=== PATIENT | male | born 1950 | race Caucasian/White ===

== ENCOUNTER → 2019-04-16 | Outpatient (CLI) | payer MEDICARE, MEDICAID | END | disposition home or self-care (01) | LOC: MSC 10:00 | PROVIDERS: ATTEND Anesthesiology | DX: M51.36 Other intervertebral disc degeneration, lumbar region (principal); M51.26 Other intervertebral disc displacement, lumbar region; M47.27 Other spondylosis with radiculopathy, lumbosacral region; M40.299 Other kyphosis, site unspecified; M79.604 Pain in right leg; M79.605 Pain in left leg; Z98.61 Coronary angioplasty status; Z98.62 Peripheral vascular angioplasty status; E11.9 Type 2 diabetes mellitus without complications; R03.0 Elevated blood-pressure reading, without diagnosis of hypertension; Z87.891 Personal history of nicotine dependence; F10.99 Alcohol use, unspecified with unspecified alcohol-induced disorder ==

== ENCOUNTER → 2019-05-21 | Outpatient (CLI) | payer MEDICARE, MEDICAID | END | disposition home or self-care (01) | LOC: MSC 09:55 | PROVIDERS: ATTEND Anesthesiology | DX: M51.36 Other intervertebral disc degeneration, lumbar region (principal); M51.26 Other intervertebral disc displacement, lumbar region; M47.27 Other spondylosis with radiculopathy, lumbosacral region; M40.299 Other kyphosis, site unspecified; M79.604 Pain in right leg; M79.605 Pain in left leg; E11.9 Type 2 diabetes mellitus without complications; R03.0 Elevated blood-pressure reading, without diagnosis of hypertension; Z95.5 Presence of coronary angioplasty implant and graft; Z87.891 Personal history of nicotine dependence; F10.99 Alcohol use, unspecified with unspecified alcohol-induced disorder ==

== ENCOUNTER → 2019-12-10 | Outpatient (CLI) | payer MEDICARE, MEDICAID | END | disposition home or self-care (01) | LOC: MSC 12:00 | PROVIDERS: ATTEND Anesthesiology | DX: M51.36 Other intervertebral disc degeneration, lumbar region (principal); M51.26 Other intervertebral disc displacement, lumbar region; M47.27 Other spondylosis with radiculopathy, lumbosacral region; M40.299 Other kyphosis, site unspecified; M79.669 Pain in unspecified lower leg; E11.9 Type 2 diabetes mellitus without complications; I10 Essential (primary) hypertension ==

== ENCOUNTER → 2020-01-14 | Outpatient (CLI) | payer MEDICARE, MEDICAID | END | disposition home or self-care (01) | LOC: MSC 10:20 | PROVIDERS: ATTEND Anesthesiology | DX: M47.27 Other spondylosis with radiculopathy, lumbosacral region (principal); M51.36 Other intervertebral disc degeneration, lumbar region; M51.26 Other intervertebral disc displacement, lumbar region; M40.299 Other kyphosis, site unspecified; M79.669 Pain in unspecified lower leg; E11.9 Type 2 diabetes mellitus without complications; I10 Essential (primary) hypertension; Z95.5 Presence of coronary angioplasty implant and graft ==

== ENCOUNTER 2020-04-04 08:04 | Inpatient (IN) | payer MEDICARE, OTHER ==
[~2020-04-04] VITALS: Ht 170.2 cm; Wt 109.0 kg
--- NOTE | 2020-04-04 08:04 | NUR ---
PT BIB FAMILY C/O WORSENING SOB SINCE YESTERDAY O2 SAT 97% RA. PT IS AAOX4, NOTED INCREASED RESPIRATION, V/S STABLE, KEPT RESTED AND COMFORTABLE. WILL CONTINUE TO MONITOR.
--- NOTE | 2020-04-04 08:19 | NUR ---
SEEN AND EXAMINED BY .
--- NOTE | 2020-04-04 08:25 | NUR ---
IV LINE ESTABLISHED BLOOD DRAWN AND SENT TO LAB.
[2020-04-04 08:37] LABS: BASOPHILS % (AUTO) 0.6 % (0.0-2.0); EOSINOPHILS % (AUTO) 0.3 % (0.0-6.0); HEMATOCRIT 46 % (39-51); HEMOGLOBIN 15.2 g/dL (13.5-17.5); LYMPHOCYTES # (AUTO) 0.9 /CMM (0.8-4.8); LYMPHOCYTES % (AUTO) 23.2 % (20.0-44.0); MEAN CORPUSCULAR HGB CONC 33 g/dl (31.0-36.0); MEAN CORPUSCULAR VOLUME 84 fL (80-96); MONOCYTES # (AUTO) 0.4 /CMM (0.1-1.30); NEUTROPHILS # (AUTO) 2.4 /CMM (1.8-8.9); NEUTROPHILS % (AUTO) 65.9 % (43.0-81.0); PLATELET COUNT (AUTO) 99 /CMM (150-450); RED BLOOD CELL COUNT(AUTO) 5.42 MIL/uL (4.5-6.0); WHITE BLOOD COUNT (AUTO) 3.7 K/uL (4.3-11.0)
[2020-04-04 08:53] LABS: CALCIUM, SERUM 8.3 mg/dL (8.5-10.1); CARBON DIOXIDE 26 mmol/L (21-32); CHLORIDE 104 mmol/L (98-107); GLUCOSE 143 mg/dL (74-106); POTASSIUM 3.5 mmol/L (3.5-5.1); SODIUM SERUM 139 mmol/L (136-145); UREA NITROGEN, BLOOD 15 mg/dL (7-18)
[2020-04-04 08:56] LABS: D-DIMER 0.41 mg/L(FEU (0.17-0.50)
[2020-04-04 09:01] LABS: ABG BASE EXCESS -2.8 mmol/L; ABG OXYGEN SATURATION 97.7 % (92.0-98.5); ABG PH 7.416 (7.350-7.450); ABG PO2 103.4 mmHg (75.0-100.0); AaDO2 86.2 mmHg; COHb 0.9 % (0.5-1.5); MetHb 0.5 % (0.0-1.5); O2Hb 96.3 % (94.0-97.0); SITE, ABG Right Radial; VENT MODE, BG N/C 3LPM
[2020-04-04 09:07] LABS: ALANINE AMINOTRANSFERASE 24 U/L (12-78); ALBUMIN 3.2 g/dL (3.4-5.0); ALKALINE PHOSPHATASE 30 U/L (46-116); ASPARTATE AMINOTRANSFERASE 19 U/L (15-37); B-TYPE NATRIURETIC PEPTIDE 168 PG/ML (0-125); BILIRUBIN,TOTAL 0.5 mg/dL (0.2-1.0); TOTAL PROTEIN, SERUM 6.2 g/dL (6.4-8.2)
[2020-04-04 09:49] LABS: BILIRUBIN,URINE Negative (NEGATIVE); COLOR,URINE YELLOW (YELLOW); LEUKOCYTE ESTERASE ,URINE Negative (NEGATIVE); NITRITE, URINE Negative (NEGATIVE); PH,URINE 6.5 (5.0-8.0); PROTEIN,URINE 100 mg/dl (NEGATIVE); UGLUCOSE >=1000 mg/dL (NEGATIVE); UROBILINOGEN,URINE 0.2 EU/dL (0.2)
[2020-04-04 10:11] LABS: BACTERIA,URINE None seen /HPF (None Seen); RBC,URINE 0-2 /HPF (0-2); SQUAMOUS EPITHELIAL CELL,UR Few /HPF (None Seen); WBC,URINE 0-2 /HPF (0-3)
[2020-04-04 10:18] LABS: CREATINE KINASE, TOTAL 81 U/L (39-308); FERRITIN 196 ng/mL (8-388)
[2020-04-04 10:30] LABS: C-REACTIVE PROTEIN 1.6 mg/dL (0.0-0.9)
[2020-04-04] MEDS ORDERED: SENN-175 PO (10:32)
[2020-04-04] MEDS ORDERED: ATOR20TA PO (10:32)
[2020-04-04] MEDS ORDERED: ASPI-1169 PO (10:32)
[2020-04-04] MEDS ORDERED: EMPA25TA PO (10:32)
[2020-04-04] MEDS ORDERED: ICOS1CAP PO (10:32)
[2020-04-04] MEDS ORDERED: INSU100V11 SQ (10:32)
[2020-04-04] MEDS ORDERED: SACU1TAB4 PO (10:32)
[2020-04-04] MEDS ORDERED: INSU100I35 SQ (10:32)
[2020-04-04] MEDS ORDERED: CARV25TA PO (10:32)
[2020-04-04] MEDS ORDERED: FENO145T21 PO (10:32)
[2020-04-04] MEDS ORDERED: HYDR-4076 PO (10:32)
--- NOTE | 2020-04-04 10:43 | NUR ---
CLAIM PROFESSIONAL AT BEDSIDE FOR XRAY.
[2020-04-04] MEDS ORDERED: DEXAMETHASONE 1 MG TABLET PO ONE (11:00)
[2020-04-04] MEDS ORDERED: AZITHROMYCIN 500 MG in IV D5W 250 ML IV ONE (11:00)
[2020-04-04] MEDS ORDERED: DEXAMETHASONE 1 MG TABLET ONE (11:04)
[2020-04-04] MEDS ORDERED: DEXAMETHASONE 4 MG TABLET ONE (11:04)
[2020-04-04] MEDS ORDERED: HYDROCODONE/APAP 5/325MG TABLET PO PRN (14:30)
[2020-04-04] MEDS ORDERED: ACETAMINOPHEN 325 MG TABLET PO PRN (14:30)
[2020-04-04] MEDS ORDERED: ONDANSETRON HCL/PF 4 MG/2 ML VIAL IVP PRN (14:30)
[2020-04-04] MEDS ORDERED: Z GUARD REMEDY 2 OZ OINT TP PRN (14:30)
[2020-04-04] MEDS ORDERED: ENOXAPARIN SODIUM 40 MG/0.4 ML DISP.SYRIN SQ ONE (14:30)
[2020-04-04] MEDS ORDERED: ZOLPIDEM TARTRATE 5 MG TABLET PO PRN (14:30)
--- NOTE | 2020-04-04 14:31 | NUR ---
PT IS COVID +
--- NOTE | 2020-04-04 14:32 | NUR ---
CALLED HOUSE SUP FOR TELE BED COVID +
--- NOTE | 2020-04-04 15:22 | NUR ---
TELE 207-1.
--- NOTE | 2020-04-04 15:35 | NUR ---
REPORT GIVEN TO TOLU MANCINI FOR [facility].
[2020-04-04 15:45] VITALS: BP 157/81
--- NOTE | 2020-04-04 15:45 | NUR ---
TELE/RN OPENING NOTE Received patient in [facility], transferred safely to bed in . A&O x 4, VSS, afebrile, no SOB noted. Denies any pain/discomfort at this time. Breathing even and non-labored on 2L oxygen via NC, saturating at 97%. No cardiac distress noted. On tele monitor, reading SR 88. IV access noted on R AC #18g, patent and intact, and flushing well. Sensation from all peripheral extremities intact. No skin impairments noted. Belongings listed and noted in chart. Notified AMA Reyes that patient is in room and is awaiting for orders. Per Amy, she will come visit patient. Bed locked to its lowest position, side rails x 2 up, call light in hand. Will continue with current medical management.
[2020-04-04] MEDS ORDERED: DEXTROSE 50%-WATER 50 ML DISP.SYRIN IV PRN (19:00)
--- NOTE | 2020-04-04 19:00 | NUR ---
TELE/RN CLOSING NOTE Patient resting in bed, A&O x 4. Denies any pain/discomfort throughout shift. Breathing even and non-labored on 2L oxygen via NC, no SOB noted. No cardiac distress noted. On tele monitor, reading SR 85. IV access noted on R AC #18g, remain patent and intact, and flushing well. Sensation from all peripheral extremities intact. Fall precautions maintained. Will endorse to shift commander nurse.
--- NOTE | 2020-04-04 19:39 | NUR ---
AERODYNAMIC CONSULTANT NOTES PATIENT IN BED, AWAKE, ALERT AND ORIENTED X 4. BREATHING EVEN AND UNLABORED ON 2L NC. SHOWS NO SIGNS OF ACUTE RESPIRATORY DISTRESS. NO ACUTE PAIN. TELE MONITOR SR. IV ON RAC 18, FLUSHING WELL. CLEAN DRY AND INTACT. SHOWS NO SIGNS OF INFILTRATION, NO REDNESS. SAFETY PRECAUTIONS IN PLACE. BED IN LOWEST POSITION, LOCKED, AND CALL LIGHT KEPT WITHIN REACH. WILL CONTINUE TO MONITOR.
[2020-04-04 20:00] VITALS: BP 150/70
[2020-04-04 21:01] VITALS: BP 150/70
[2020-04-04] MEDS: BLOOD SUGAR DIAGNOSTIC 1 EACH STRIP IN SCH (21:58)
[2020-04-04] MEDS: INSULIN REGULAR, HUMAN 100 UNIT/ML 3 ML VIAL SQ PRN (22:00)
[2020-04-05] VITALS: BP 125/58
[2020-04-05 04:00] VITALS: BP 158/87
[2020-04-05] MEDS: BLOOD SUGAR DIAGNOSTIC 1 EACH STRIP IN SCH ×2 (06:33→12:02)
[2020-04-05] MEDS: INSULIN REGULAR, HUMAN 100 UNIT/ML 3 ML VIAL SQ PRN ×2 (06:35→12:05)
--- NOTE | 2020-04-05 06:56 | NUR ---
ORE STORAGE DRIER NOTES PATIENT IN BED, ASLEEP, ALERT AND ORIENTED X 4. BREATHING EVEN AND UNLABORED ON 2L NC. SHOWS NO SIGNS OF ACUTE RESPIRATORY DISTRESS. NO ACUTE PAIN. TELE MONITOR SR. IV ON RAC 18, FLUSHING WELL. CLEAN DRY AND INTACT. SHOWS NO SIGNS OF INFILTRATION, NO REDNESS. ALL DUE MEDICATIONS GIVEN. ALL NEEDS ATTENDED TO. SAFETY PRECAUTIONS IN PLACE. BED IN LOWEST POSITION, LOCKED, AND CALL LIGHT KEPT WITHIN REACH. WILL ENDORSE TO ONCOMING NURSE.
--- NOTE | 2020-04-05 07:30 | NUR ---
TELE/RN OPENING NOTE Patient awake in bed, A&O x 4. Denies any pain/discomfort throughout shift. Breathing even and non-labored on 2L oxygen via NC, no SOB noted. No cardiac distress noted. On tele monitor, reading SR 76. IV access noted on R AC #18g, remain patent and intact, and flushing well. Sensation from all peripheral extremities intact. Bed locked to its lowest position, side rails x 2 up, call light in hand. Will continue with current medical management.
[2020-04-05 07:57] LABS: BASOPHILS % (AUTO) 0.5 % (0.0-2.0); HEMATOCRIT 48 % (39-51); HEMOGLOBIN 15.5 g/dL (13.5-17.5); LYMPHOCYTES # (AUTO) 0.9 /CMM (0.8-4.8); LYMPHOCYTES % (AUTO) 29.5 % (20.0-44.0); MEAN CORPUSCULAR HGB CONC 33 g/dl (31.0-36.0); MEAN CORPUSCULAR VOLUME 84 fL (80-96); MONOCYTES # (AUTO) 0.4 /CMM (0.1-1.30); MONOCYTES % (AUTO) 12.9 % (2.0-12.0); NEUTROPHILS # (AUTO) 1.7 /CMM (1.8-8.9); NEUTROPHILS % (AUTO) 57.1 % (43.0-81.0); PLATELET COUNT (AUTO) 113 /CMM (150-450); RED BLOOD CELL COUNT(AUTO) 5.63 MIL/uL (4.5-6.0); WHITE BLOOD COUNT (AUTO) 2.9 K/uL (4.3-11.0)
[2020-04-05 08:00] VITALS: BP 150/79
[2020-04-05 08:20] LABS: CALCIUM, SERUM 8.4 mg/dL (8.5-10.1); MAGNESIUM 1.9 mg/dL (1.8-2.4); POTASSIUM 3.8 mmol/L (3.5-5.1)
[2020-04-05] MEDS ORDERED: DEXAMETHASONE SOD PHOSPHATE 10 MG/ML VIAL IV SCH (11:00)
--- NOTE | 2020-04-05 11:00 | NUR ---
TELE/RN NOTE Patient appears comfortable and well, no respiratory distress noted. On room air, saturating at 98%, breathing even and non-labored.
[2020-04-05 12:00] VITALS: BP 138/69
[2020-04-05] MEDS ORDERED: DEXA4TAB PO (13:30)
--- NOTE | 2020-04-05 15:30 | NUR ---
TELE/HEALTH SERVICES MANAGER NOTE Patient picked up by son, Gasper. Patient remained stable throughout shift. No complaints of pain/discomfort noted. Breathing even and non-labored on RA, no SOB noted. No cardiac distress noted, removed tele leads off of patient skin, skin remains intact, no new skin impairments noted. IV access removed on RAC #18 with catheter intact, placed clean dry dressing and placed pressure on site with tape. Educated patient about discharge instructions and covid isolation precautions, answered all his questions to his satisfaction. Patient verbalized understanding. Patient left safely along with hospital documents and belongings.
[2020-04-05 16:50] VITALS: BP 143/78
[2020-04-05] MEDS ORDERED: ENOXAPARIN SODIUM 40 MG/0.4 ML DISP.SYRIN SQ SCH (22:00)
== END 2020-04-05 15:30 | disposition home or self-care (01) | DRG 177 ==
LOC: ER 08:06 → TELE2 15:26
PROVIDERS: ADMIT Nurse Practitioner Acute Care; ATTEND Nurse Practitioner Acute Care
DX: U07.1 COVID-19 (principal); J12.82 Pneumonia due to coronavirus disease 2019; J96.01 Acute respiratory failure with hypoxia; E11.9 Type 2 diabetes mellitus without complications; I10 Essential (primary) hypertension; I25.10 Atherosclerotic heart disease of native coronary artery without angina pectoris; Z87.891 Personal history of nicotine dependence; D69.6 Thrombocytopenia, unspecified; D72.819 Decreased white blood cell count, unspecified; Z95.5 Presence of coronary angioplasty implant and graft; I25.2 Old myocardial infarction; Z79.4 Long term (current) use of insulin
CPT/HCPCS: 36415; 36600; 71045-TC; 80048-TC; 80053-TC; 80061-TC; 81001; 82550-TC; 82728-TC; 82803-TC; 82962-TC; 83605-TC; 83615-TC; 83735-TC; 83880; 84100-TC; 84484-TC; 85025-TC; 85378-TC; 85385-TC; 85730-TC; 86140-TC; 87040-TC; 87081-TC; 87086-TC; C9803; G0378; J0456; J1100; J1815; J7060; J8540; U0003

== ENCOUNTER 2020-12-22 11:10 | Outpatient (CLI) | payer MEDICARE, OTHER ==
[~2020-12-22 11:10] MED LIST: ASPI-1169 PO; ATOR20TA PO; CARV25TA PO; DEXA4TAB PO; EMPA25TA PO; FENO145T21 PO; HYDR-4076 PO; ICOS1CAP PO; INSU100I35 SQ; INSU100V11 SQ; SACU1TAB4 PO; SENN-175 PO
== END 2020-12-22 23:59 | disposition home or self-care (01) ==
LOC: MSC 11:10
PROVIDERS: ATTEND Anesthesiology
DX: M51.26 Other intervertebral disc displacement, lumbar region (principal); M51.36 Other intervertebral disc degeneration, lumbar region; M47.27 Other spondylosis with radiculopathy, lumbosacral region; M40.299 Other kyphosis, site unspecified; M79.669 Pain in unspecified lower leg; Z98.62 Peripheral vascular angioplasty status; Z95.5 Presence of coronary angioplasty implant and graft; I10 Essential (primary) hypertension; E11.9 Type 2 diabetes mellitus without complications; Z79.4 Long term (current) use of insulin; Z72.89 Other problems related to lifestyle; Z87.891 Personal history of nicotine dependence; Z79.82 Long term (current) use of aspirin; Z79.899 Other long term (current) drug therapy

== ENCOUNTER 2021-01-07 12:07 | Outpatient (CLI) | payer MEDICARE, OTHER | END 2021-01-07 23:59 | disposition home or self-care (01) | LOC: LAB 12:07 | PROVIDERS: ATTEND Anesthesiology | DX: Z01.812 Encounter for preprocedural laboratory examination (principal); Z20.822 Contact with and (suspected) exposure to COVID-19 | CPT/HCPCS: C9803; U0003 ==

== ENCOUNTER 2021-01-14 06:55 | Day surgery (SDC) | payer MEDICARE, OTHER ==
--- NOTE | 2021-01-14 07:40 | NUR ---
RN NOTES LFA #20 INSERTED BY TOLU RDZ.
--- NOTE | 2021-01-14 07:51 | NUR ---
RN NOTES PATIENT PICKED UP FOR PROCEDURE VIA GURNEY, ACCOMPANIED BY 2 OR NURSES.
[2021-01-14] MEDS ORDERED: BUPIVACAINE 0.25% 75 MG/30 ML VIAL ONE (08:32)
--- NOTE | 2021-01-14 10:23 | NUR ---
RN NOTES PATIENT RETURNED FROM SURGERY VIA GURNEY, ACCOMPANIED BY 2 OR NURSES.
--- NOTE | 2021-01-14 10:53 | NUR ---
RN NOTES PATIENT DISCHARGED TO HOME PER DR. CHANCE'S ORDERS. RESUME HOME MEDS PER MD. DISCHARGE INSTRUCTION AND EDUCATION PROVIDED TO PATIENT. BELONGINGS ARE WITH PATIENT. NAME ARMBAND AND IV LINE REMOVED. PATIENT IS AMBULATORY AND ABLE TO AMBULATE W/ STEADY GAIT. ABLE TO DRIVE W/ PRIVATE CAR. CHARGE NURSE AND MD AWARE OF DISCHARGE.
== END 2021-01-14 16:00 | disposition home or self-care (01) ==
LOC: DS 06:55 → MED 06:57 → UNDOADMIN 06:57 → UNDODISIN 10:45 → DS 16:00
PROVIDERS: ATTEND Anesthesiology
DX: M47.26 Other spondylosis with radiculopathy, lumbar region (principal); I10 Essential (primary) hypertension; E11.9 Type 2 diabetes mellitus without complications; M54.50 Low back pain, unspecified; M51.16 Intervertebral disc disorders with radiculopathy, lumbar region; E66.3 Overweight; Z79.4 Long term (current) use of insulin; Z79.82 Long term (current) use of aspirin; Z98.890 Other specified postprocedural states; Z79.899 Other long term (current) drug therapy
CPT/HCPCS: 62323; 72020; J2704; J3490 ×2; J7030; J7120; C9803; G0378; U0003

== ENCOUNTER → 2021-02-02 | Outpatient (CLI) | payer MEDICARE, OTHER | END | disposition home or self-care (01) | LOC: MSC 09:45 | PROVIDERS: ATTEND Anesthesiology | DX: M51.36 Other intervertebral disc degeneration, lumbar region (principal); M51.26 Other intervertebral disc displacement, lumbar region; M47.27 Other spondylosis with radiculopathy, lumbosacral region; M40.299 Other kyphosis, site unspecified; M79.669 Pain in unspecified lower leg; Z83.3 Family history of diabetes mellitus; Z82.49 Family history of ischemic heart disease and other diseases of the circulatory system; Z95.820 Peripheral vascular angioplasty status with implants and grafts; Z87.891 Personal history of nicotine dependence; Z72.89 Other problems related to lifestyle; Z79.82 Long term (current) use of aspirin; Z79.4 Long term (current) use of insulin; Z79.899 Other long term (current) drug therapy ==

== ENCOUNTER 2021-11-02 10:00 | Outpatient (CLI) | payer MEDICARE, OTHER | END 2021-11-02 23:59 | disposition home or self-care (01) | LOC: MSC 10:00 | PROVIDERS: ATTEND Anesthesiology | DX: M51.36 Other intervertebral disc degeneration, lumbar region (principal); M51.26 Other intervertebral disc displacement, lumbar region; M47.27 Other spondylosis with radiculopathy, lumbosacral region; M40.299 Other kyphosis, site unspecified; M79.669 Pain in unspecified lower leg; Z79.82 Long term (current) use of aspirin; Z98.62 Peripheral vascular angioplasty status; Z95.5 Presence of coronary angioplasty implant and graft; Z79.01 Long term (current) use of anticoagulants; Z82.49 Family history of ischemic heart disease and other diseases of the circulatory system; Z83.3 Family history of diabetes mellitus; Z87.891 Personal history of nicotine dependence; Z79.899 Other long term (current) drug therapy ==

== ENCOUNTER 2021-12-20 06:59 | Outpatient (CLI) | payer MEDICARE, OTHER | END 2021-12-20 23:59 | disposition home or self-care (01) | LOC: LAB 06:59 | PROVIDERS: ATTEND Anesthesiology | DX: Z01.812 Encounter for preprocedural laboratory examination (principal); Z20.822 Contact with and (suspected) exposure to COVID-19 | CPT/HCPCS: U0003; C9803 ==

== ENCOUNTER 2021-12-27 09:11 | Day surgery (SDC) | payer MEDICARE, OTHER ==
--- NOTE | 2021-12-27 09:30 | NUR ---
DAY SURGERY RECEIVED PT IN DAY SURGERY , ADULATORY , A/OX4, ON RA, VSS STABLE , IV STARTED ON LEFT UPPER ARM G 22, PT NPO , CONTINUE TO MONITOR .
--- NOTE | 2021-12-27 10:03 | NUR ---
DAY SURGERY PT TO OR AT THIS TIME , PT STABLE .
[2021-12-27] MEDS ORDERED: BUPIVACAINE 0.25% 75 MG/30 ML VIAL ONE (11:53)
[2021-12-27] MEDS ORDERED: IOHEXOL 0 ML IV ONE (11:53)
[2021-12-27] MEDS ORDERED: LIDOCAINE 1% INJ 50 ML MDV IJ ONE (11:53)
[2021-12-27] MEDS ORDERED: methylPREDNISolone ACETATE 80 MG/ML VIAL ONE (11:54)
[2021-12-27 12:43] VITALS: BP 130/89
--- NOTE | 2021-12-27 12:43 | NUR ---
DAY SURGERY PT RECEIVED FROM PACU, A/Ox4, DENIES ANY PAIN, VSS STABLE .
== END 2021-12-27 12:43 | disposition home or self-care (01) ==
LOC: DS 09:11
PROVIDERS: ATTEND Anesthesiology
DX: M54.50 Low back pain, unspecified (principal); M47.27 Other spondylosis with radiculopathy, lumbosacral region; I10 Essential (primary) hypertension; E66.01 Morbid (severe) obesity due to excess calories; E11.9 Type 2 diabetes mellitus without complications; Z79.82 Long term (current) use of aspirin; Z79.4 Long term (current) use of insulin; Z98.890 Other specified postprocedural states; Z79.899 Other long term (current) drug therapy
CPT/HCPCS: 62323; 72020; J1040; J2704; J3490 ×2; J7120; J7030; Q9967

== ENCOUNTER 2022-10-20 08:53 | Day surgery (SDC) | payer MEDICARE, OTHER ==
[2022-10-20] MEDS ORDERED: IOHEXOL 50 ML IV ONE (10:22)
[2022-10-20] MEDS ORDERED: methylPREDNISolone ACETATE 80 MG/ML VIAL ONE (10:23)
[2022-10-20] MEDS ORDERED: BUPIVACAINE 0.25% 75 MG/30 ML VIAL ONE (10:23)
[2022-10-20] MEDS ORDERED: LIDOCAINE 1% INJ 50 ML MDV IJ ONE (10:23)
== END 2022-10-20 11:30 | disposition home or self-care (01) ==
LOC: DS 08:53
PROVIDERS: ATTEND Anesthesiology
DX: M47.26 Other spondylosis with radiculopathy, lumbar region (principal)
CPT/HCPCS: 62323; 72020; A6209; J1040; J2704; J3490; J7030; Q9967

== ENCOUNTER 2023-06-13 07:26 | Day surgery (SDC) | payer MEDICARE, OTHER | END 2023-06-13 10:24 | disposition home or self-care (01) | LOC: DS 07:26 | PROVIDERS: ATTEND Anesthesiology | DX: M47.27 Other spondylosis with radiculopathy, lumbosacral region (principal); I10 Essential (primary) hypertension; I25.10 Atherosclerotic heart disease of native coronary artery without angina pectoris; E11.9 Type 2 diabetes mellitus without complications; Z98.890 Other specified postprocedural states; Z79.899 Other long term (current) drug therapy | CPT/HCPCS: 62323; 82962; J2704; J3490; 72110-TC ==

== ENCOUNTER 2024-03-28 08:17 | Day surgery (SDC) | payer MEDICARE, OTHER ==
[2024-03-28] MEDS ORDERED: LIDOCAINE 1% INJ 50 ML MDV IJ ONE (08:36)
[2024-03-28] MEDS ORDERED: IOHEXOL 50 ML IV ONE (08:36)
[2024-03-28] MEDS ORDERED: BUPIVACAINE 0.25% 75 MG/30 ML VIAL ONE (08:36)
[2024-03-28] MEDS ORDERED: methylPREDNISolone ACETATE 80 MG/ML VIAL ONE (08:37)
[2024-03-28] MEDS ORDERED: dexaMETHasone SOD PHOSPHATE 2 ML ONE (08:37)
[2024-03-28] MEDS ORDERED: BETA ACET/BET NA PHOS MDV 6 MG/ML VIAL ONE (08:37)
[2024-03-28] MEDS ORDERED: MIDAZOLAM HCL 2 MG/2ML VIAL ONE (08:54)
[2024-03-28] MEDS ORDERED: FENTANYL PF 100MCG/2ML AMPUL ONE (08:54)
[2024-03-28] MEDS ORDERED: FLUMAZENIL 0.5 MG VIAL ONE (09:12)
== END 2024-03-28 10:45 | disposition home or self-care (01) ==
LOC: DS 08:17
PROVIDERS: ATTEND Anesthesiology
DX: M51.16 Intervertebral disc disorders with radiculopathy, lumbar region (principal); M47.26 Other spondylosis with radiculopathy, lumbar region; I10 Essential (primary) hypertension; I25.2 Old myocardial infarction; E11.9 Type 2 diabetes mellitus without complications; Z86.16 Personal history of COVID-19; Z87.01 Personal history of pneumonia (recurrent); Z87.891 Personal history of nicotine dependence; Z79.4 Long term (current) use of insulin; Z79.82 Long term (current) use of aspirin; Z79.899 Other long term (current) drug therapy; Z95.5 Presence of coronary angioplasty implant and graft; Z98.890 Other specified postprocedural states
CPT/HCPCS: 62323; 72020; 82962; J1100; J2250; J2704; J3010; J3490; Q9967; J0702; J1010